=== PATIENT | female | born 1950 | race Caucasian/White ===

== ENCOUNTER 2023-08-05 12:00 | Day surgery (SDC) | payer MEDICARE ==
[2023-07-31 10:30] VITALS: BMI 31.1
[~2023-08-05 12:00] MED LIST: ACETAMINOPHEN TAB 500 MG TAB PO PRN; DEXAMETHASONE SOD PHOSPHATE 4 MG/ML 1 ML VIAL IV ONE; HEPARIN SODIUM,PORCINE 5,000 UNIT/ML 1 ML VIAL SQ PRN; HYDROmorphone 0.5 MG/0.5 ML SYRINGE IVP PRN; LACTATED RINGERS 1,000 ML IV SCH; MIDAZOLAM 2 MG/2 ML VIAL IV PRN; ONDANSETRON 4 MG/2 ML VIAL IVP ONE; Pre Op ABX Message 1 EACH MISC MISCELLANE ONE
[2023-08-05] MEDS ORDERED: DEXAMETHASONE SOD PHOSPHATE 4 MG/ML 1 ML VIAL IVP ONE (12:44)
[2023-08-05] MEDS ORDERED: ONDANSETRON 4 MG/2 ML VIAL IVP ONE (12:44)
--- NOTE | 2023-08-05 13:50 | P.GSHP ---
History of Present Illness H&P Date: 08/05/23 Chief Complaint: Ovarian cancer 72-year-old female diagnosed with ovarian cancer about a year ago. She has already gone through 1 round of chemotherapy and will be starting another round soon. Patient has poor IV access and is here today for Port-A-Cath placement for that reason. Past Medical History Past Medical History: Cancer, Hypertension Additional Past Medical History / Comment(s): OVARIAN CANCER History of Any Multi-Drug Resistant Organisms: None Reported Past Surgical History: Appendectomy, Bowel Resection, Cholecystectomy, Hysterectomy Additional Past Surgical History / Comment(s): TUMOR DEBULKING. RIGHT CONGENITAL OBSTRUCTION REMOVED AND REPAIRED URETER. BILATERAL CATARACTS. Past Anesthesia/Blood Transfusion Reactions: No Reported Reaction Additional Past Anesthesia/Blood Transfusion Reaction / Comment(s): no problems with platelet transfusion-received transfusion of 07-16-23. Past Alcohol Use History: Rare - Past Family History Mother Family Medical History: Diabetes Mellitus Father Family Medical History: Cancer, Coronary Artery Disease (CAD), Diabetes Mellitus Additional Family Medical History / Comment(s): colon Medications and Allergies Home Medications Medication Instructions Recorded Confirmed Type B-Complex with Vitamin C 1 tab PO DAILY 07/26/23 08/05/23 History Cholecalciferol (Vitamin D3) 125 mg PO Q3D 07/26/23 08/05/23 History [Vitamin D3 (125 MCG = 5,000 IU)] Levothyroxine Sodium [Synthroid] 50 mcg PO QAM 07/26/23 08/05/23 History Lisinopril-Hctz 20-12.5 mg 1 tab PO QAM 07/26/23 08/05/23 History [Zestoretic 20-12.5] Multivitamins, Thera [Multivitamin 1 tab PO DAILY 07/26/23 08/05/23 History (formulary)] OLANZapine [ZyPREXA] 2.5 mg PO DIRECTED PRN 07/26/23 08/05/23 History Venlafaxine HCl [Effexor XR] 150 mg PO QAM 07/26/23 08/05/23 History amLODIPine 10 mg PO HS 07/26/23 08/05/23 History lisinopriL [Zestril] 10 mg PO QAM 07/26/23 08/05/23 History L.acidoph,Paracasei, B.lactis 1 dose PO DAILY 07/31/23 08/05/23 History [Probiotic] Allergies Allergy/AdvReac Type Severity Reaction Status Date / Time Penicillins Allergy Rash/Hives Verified 08/05/23 12:19 Sulfa (Sulfonamide Allergy Rash/Hives Verified 08/05/23 12:19 Antibiotics) Surgical - Exam Vital Signs Temp Pulse Resp BP Pulse Ox 98.5 F 87 16 131/79 97 08/05/23 12:30 08/05/23 12:30 08/05/23 12:30 08/05/23 12:30 08/05/23 12:30 Physical exam: General: Well-developed, well-nourished HEENT: Normocephalic, sclerae nonicteric Abdomen: Nontender, nondistended Extremities: No edema Neuro: Alert and oriented Assessment and Plan (1) Ovarian cancer Narrative/Plan: 72-year-old female with ovarian cancer. Will proceed with Port-A-Cath placement at this time. Risks of bleeding, infection, DVT, pneumothorax, catheter malfunction, anesthesia related complications were discussed. The patient understands and wishes to proceed. Current Visit: Yes Status: Acute Code(s): C56.9 - MALIGNANT NEOPLASM OF UNSPECIFIED OVARY SNOMED Code(s): 333923697
[2023-08-05] MEDS ORDERED: PHENYLEPHRINE 10 MG/ML VIAL ONE (13:54)
[2023-08-05] MEDS ORDERED: PROPOFOL 10 MG/ML 20 ML VIAL IV ONE (13:54)
[2023-08-05] MEDS ORDERED: MIDAZOLAM 2 MG/2 ML VIAL ONE (13:54)
[2023-08-05] MEDS ORDERED: LIDOCAINE 1% INJ 10MG/ML (20 ML MDV) ONE (13:54)
[2023-08-05] MEDS ORDERED: fentaNYL (PF) 50 MCG/ML 2 ML AMP ONE (13:54)
[2023-08-05] MEDS ORDERED: KETOROLAC 15 MG/ML 1 ML VIAL ONE (13:54)
[2023-08-05] MEDS ORDERED: ceFAZolin 1 GM/50 ML BAG (PMX) ONE (13:54)
[2023-08-05] MEDS ORDERED: HEPARIN SODIUM,PORCINE 100 UNIT/ML 5 ML VIAL IV ONE ×2 (14:12→14:35)
[2023-08-05] MEDS ORDERED: LIDOCAINE (PF) 10 MG/ML 2 ML VIAL SQ ONE ×2 (14:13→14:41)
[2023-08-05] MEDS ORDERED: SODIUM CHLORIDE 0.9% 50 ML with ceFAZolin 2,000 MG IV ONE ×2 (14:15)
[2023-08-05] MEDS ORDERED: ACETAMINOPHEN TAB 325 MG TAB PO PRN (15:01)
[2023-08-05] MEDS ORDERED: NALOXONE 0.4 MG/ML 1 ML VIAL IV PRN (15:01)
--- NOTE | 2023-08-05 15:06 | FL ---
EXAMINATION TYPE: FL guided central line placemt Intraoperative/procedural fluoroscopic services were provided. CLINICAL INDICATION:Female, 72 years old with history of INSERTION PORT A CATH; , [facility] Total fluoroscopy time is 41.4 seconds . DAP: 2.1141 Gycm2 Please see the operative/procedural note for further details.
[2023-08-05 15:09] VITALS: TEMP 97
--- NOTE | 2023-08-05 15:10 | P.OP ---
Date of Procedure: 08/05/23 Procedure(s) Performed: PREOPERATIVE DIAGNOSIS: Ovarian cancer POSTOPERATIVE DIAGNOSIS: Same PROCEDURE: Port-A-Cath placement with fluoroscopic and ultrasound guidance SURGEON: Christen EBL: Minimal ANESTHESIA: General COMPLICATIONS: None OPERATIVE PROCEDURE: Patient was brought and placed on the operative table in the supine position. The patient was placed under general anesthesia at that time. The chest and neck were prepped and draped in usual sterile fashion. The ultrasound probe was used to identify the location of the right internal jugular vein. The skin was localized with lidocaine. The Seldinger needle was advanced into the IJ under ultrasound guidance. The wire was advanced through the needle under fluoroscopic guidance approximately 4 cm distal to our wire insertion site. There is an acute angulation of the vein in that area and we were unable to advance the guidewire any further. The right side was then aborted. The left side was addressed. I was able to easily access the left internal jugular vein and the wire was able to be advanced into the superior vena cava without d ifficulty. A port pocket was created in the left infraclavicular location. The catheter was tunneled from the wire entrance site to the port pocket. The port was then connected to the catheter. The dilator introducer was threaded over the guidewire. The guidewire and dilator were then removed. The catheter was advanced through the introducer and introducer was then removed. The tip was seen to be in the right atrial junction via fluoroscopy. A picture of the radiograph showing the tip of the catheter was taken. Port was flushed with both saline and a Hep-Lock solution. There was good flow both in and out of the port. The port was sutured in underlying tissues using 3-0 silk sutures. The subcutaneous tissues were reapproximated using 3-0 Vicryl sutures and the skin at both locations using 4-0 Monocryl sutures. Skin glue and sterile dressings then applied. DISPOSITION: Stable to recovery room
--- NOTE | 2023-08-05 15:36 | XR ---
EXAMINATION TYPE: XR chest 1V confirm line [facility] DATE OF EXAM: 08/05/2023 COMPARISON: NONE HISTORY: Line placement TECHNIQUE: Single frontal view of the chest is obtained. FINDINGS: There is no focal air space opacity, pleural effusion, or pneumothorax seen. The cardiac silhouette size is within normal limits. The osseous structures are intact. Degenerative changes of the spine with scoliotic curvature. Left-sided Mediport catheter seen with the tip of the catheter overlying SVC. IMPRESSION: No acute process.
[2023-08-05 15:37] VITALS: RESP 16
[2023-08-05 16:04] VITALS: BP 127/79; PULSE 89
== END 2023-08-05 16:18 | disposition home or self-care (01) ==
LOC: OR 12:00
PROVIDERS: ATTEND Surgery
DX: C56.2 Malignant neoplasm of left ovary (principal); I10 Essential (primary) hypertension; F10.90 Alcohol use, unspecified, uncomplicated; Z90.49 Acquired absence of other specified parts of digestive tract; Z90.710 Acquired absence of both cervix and uterus; Z83.3 Family history of diabetes mellitus; Z82.49 Family history of ischemic heart disease and other diseases of the circulatory system; Z79.890 Hormone replacement therapy; Z79.899 Other long term (current) drug therapy; Z98.890 Other specified postprocedural states
CPT/HCPCS: 77001; 36561; J2001; J1644; J1642; J1100; J2405; J0690

== ENCOUNTER → 2023-12-03 | Outpatient (CLI) | payer MEDICARE ==
--- NOTE | 2023-12-03 12:55 | US ---
EXAMINATION TYPE: US venous doppler duplex UE LT DATE OF EXAM: 12/03/2023 COMPARISON: NONE CLINICAL INDICATION: Female, 73 years old with history of R22.32 SWELLING, MASS AND LUMP, LEFT UPPER LIMB; Swelling to left side of face/mandible. Finished last ovarian cancer treatment this week; SVC c lot by port. SIDE PERFORMED: Left Right Arm: NA Left Arm: Negative for DVT Cystic area within the left parotid gland = 1.7 x 0.9 x 1.0 cm IMPRESSION: No evidence for left arm deep vein tendinosis. Cystic area within the left parotid gland measuring up to 1.[address] imaging for further amairani luation of the head and neck. Ultimately close surveillance and/or tissue symptoms recommended.
== END | disposition home or self-care (01) ==
LOC: RADUSWWP 11:58
PROVIDERS: ATTEND Internal Medicine Hematology & Oncology
DX: R22.32 Localized swelling, mass and lump, left upper limb (principal)

== ENCOUNTER 2024-11-08 08:16 | Emergency (ER) | payer MEDICARE ==
[2024-11-08 08:21] VITALS: PULSE 93; RESP 17; TEMP 98
[2024-11-08] MEDS: FAMOTIDINE 20 MG/2 ML VIAL IV STA (08:43)
[2024-11-08] MEDS: ONDANSETRON 4 MG/2 ML VIAL IVP STA (08:43)
[2024-11-08] MEDS: SODIUM CHLORIDE 0.9% 1,000 ML IV ONE (08:43)
--- NOTE | 2024-11-08 08:47 | ED ---
Nausea/Vomiting/Diarrhea HPI - General Chief complaint: Nausea/Vomiting/Diarrhea Stated complaint: Nausea, vomiting Time Seen by Provider: 11/08/24 08:19 Source: patient, RN notes reviewed Mode of arrival: ambulatory Limitations: no limitations - History of Present Illness Initial comments: This is a 74-year-old female who presents to the emergency department for nausea and vomiting. States that it started around midnight. Believes that she may have eaten something bad. Denies any changes in bowel/bladder habits. Denies any fevers/chills or sick contacts. She does report mild abdominal bloating but no discomfort that has been an ongoing issue. States that she has a history of ovarian cancer and the treatment has not been effective. She has a follow-up scan in 5 days. Currently follows with Dr. Gomez as well as a surgical oncologist in [place]. She was given Zofran by EMS on the route with significant improvement in nausea. MD complaint: nausea, vomiting - Related Data Home Medications Medication Instructions Recorded Confirmed B-Complex with Vitamin C 1 tab PO DAILY 07/26/23 08/05/23 Cholecalciferol (Vitamin D3) 125 mg PO Q3D 07/26/23 08/05/23 [Vitamin D3 (125 MCG = 5,000 IU)] Levothyroxine Sodium [Synthroid] 50 mcg PO QAM 07/26/23 08/05/23 Lisinopril-Hctz 20-12.5 mg 1 tab PO QAM 07/26/23 08/05/23 [Zestoretic 20-12.5] Multivitamins, Thera [Multivitamin 1 tab PO DAILY 07/26/23 08/05/23 (formulary)] OLANZapine [ZyPREXA] 2.5 mg PO DIRECTED PRN 07/26/23 08/05/23 Venlafaxine HCl [Effexor XR] 150 mg PO QAM 07/26/23 08/05/23 amLODIPine 10 mg PO HS 07/26/23 08/05/23 lisinopriL [Zestril] 10 mg PO QAM 07/26/23 08/05/23 L.acidoph,Paracasei, B.lactis 1 dose PO DAILY 07/31/23 08/05/23 [Probiotic] Allergies Allergy/AdvReac Type Severity Reaction Status Date / Time Penicillins Allergy Rash/Hives Verified 11/08/24 08:21 Sulfa (Sulfonamide Allergy Rash/Hives Verified 11/08/24 08:21 Antibiotics) Review of Systems ROS Statement: Those systems with pertinent positive or pertinent negative responses have been documented in the HPI. ROS Other: All systems not noted in ROS Statement are negative. Past Medical History Past Medical History: Cancer, Hypertension Additional Past Medical History / Comment(s): OVARIAN CANCER History of Any Multi-Drug Resistant Organisms: None Reported Past Surgical History: Appendectomy, Bowel Resection, Cholecystectomy, Hysterectomy Additional Past Surgical History / Comment(s): TUMOR DEBULKING. RIGHT CONGENITAL OBSTRUCTION REMOVED AND REPAIRED URETER. BILATERAL CATARACTS. Past Anesthesia/Blood Transfusion Reactions: No Reported Reaction Past Psychological History: Anxiety, Depression Past Alcohol Use History: Rare General Exam Limitations: no limitations General appearance: alert, in no apparent distress Head exam: Present: atraumatic, normocephalic, normal inspection Respiratory exam: Present: normal lung sounds bilaterally. Absent: respiratory distress, wheezes, rales, rhonchi, stridor Cardiovascular Exam: Present: regular rate, normal rhythm GI/Abdominal exam: Present: soft, normal bowel sounds. Absent: distended, tenderness, guarding, rebound, rigid Neurological exam: Present: alert, oriented X3, CN II-XII intact Psychiatric exam: Present: normal affect, normal mood Skin exam: Present: warm, dry, intact, normal color. Absent: rash Course Vital Signs 11/08/24 11/08/24 08:18 11:21 Temperature 98.0 F Pulse Rate 93 Respiratory 17 Rate Blood Pressure 125/78 126/75 O2 Sat by Pulse 97 98 Oximetry Medical Decision Making - Medical Decision Making This is a 74-year-old female who presents to the emergency department for nausea and vomiting. Was pt. sent in by a medical professional or institution? @ -No Did you speak to anyone other than the patient for history? @ -No Did you review nursing and triage notes? @ -Yes, and I agree, it is accurate with regards to the patient's symptoms. Were old charts reviewed? @ -No Differential Diagnosis? @ -Differential Nausea and Vomiting: Gastroenteritis, cholecystitis, appendicitis, pancreatitis, migraine, benign positional vertigo, food borne illness, pyelonephritis, irritable bowel syndrome, influenza, Covid, GERD, incarcerated hernia, intestinal obstruction, this is not meant to be an all-inclusive list. EKG interpreted by me (3pts min.)? @ -Not obtained X-rays interpreted by me (1pt min.)? @ -Not obtained CT interpreted by me (1pt min.)? @ -Not obtained U/S interpreted by me (1pt. min.)? @ -Not obtained What testing was considered but not performed? (CT, X-rays, U/S, labs)? Why? @ -None What meds were considered but not given? Why? @ -None Did you discuss the management of the patient with other professionals? @ -No Did you reconcile home meds? @ -No Was smoking cessation discussed for >3mins.? @ -No Was critical care preformed (if so, how long)? @ -No Were there social determinants of health that impacted care today? How? (Homelessness, low income, unemployed, alcoholism, drug addiction, transportation, low edu. Level, literacy, decrease access to med. care, alf, rehab)? @ -No Was there de-escalation of care discussed even if they declined? (Discuss DNR or withdrawal of care, Hospice)? @ -No What co-morbidities impacted this encounter? (DM, HTN, Smoking, COPD, CAD, Cancer, CVA, Hep., AIDS, mental health diagnosis, sleep apnea, morbid obesity)? @ -Ovarian cancer Was patient admitted / discharged? @ -Discharged. Lab work unremarkable. Urinalysis negative for signs of infection. She was treated with IV fluids, Zofran, and famotidine with significant improvement in symptoms. She was tolerating oral intake afterwards without any difficulty. Symptoms likely viral in nature or related to something she consumed. She did not need a refill on the Zofran, as she advised that she has some at home. Advised taking this as needed for any additional nausea and vomiting and slowly advancing her diet as tolerated and remaining well-hydrated. Patient discharged home in stable condition. Case discussed with ED attending Dr. Squires. Return precautions reviewed in depth, the patient is instructed to return to the emergency department with any new, worsening, or concerning symptoms. Patient verbalized understanding. Undiagnosed new problem with uncertain prognosis? @ -None Drug Therapy requiring intensive monitoring for toxicity (Heparin, Nitro, Insulin, Cardizem)? @ -None Were any procedures done? @ -None Diagnosis/symptom? @ -Nausea and vomiting Acute, or Chronic, or Acute on Chronic? @ -Acute Uncomplicated (without systemic symptoms) or Complicated (systemic symptoms)? @ -Uncomplicated Side effects of treatment? @ -None Exacerbation, Progression, or Severe Exacerbation] @ -Not applicable Poses a threat to life or bodily function? @ -No - Lab Data Result diagrams: 11/08/24 08:30 11/08/24 08:30 Lab Results 11/08/24 11/08/24 11/08/24 Range/Units 08:30 08:30 08:30 WBC 9.81 (4.50-10.00) 10*3/uL RBC 4.32 (4.10-5.20) 10*6/uL Hgb 15.7 H (12.0-15.0) g/dL Hct 43.8 (37.2-46.3) % MCV 101.4 H (80.0-97.0) fL MCH 36.3 H (27.0-32.0) pg MCHC 35.8 (32.0-37.0) g/dL Plt Count 251 (140-440) 10*3/uL MPV 9.3 L (9.5-12.2) fL Immature Gran % (Auto) 0.3 % Neutrophils % 86.5 % Lymphocytes % 7.4 % Monocytes % 5.5 % Eosinophils % 0.0 % Basophils % 0.3 % Immature Gran # 0.03 (0.00-0.04) 10*3/uL Neutrophils # 8.48 H (1.80-7.70) 10*3/uL Lymphocytes # 0.73 L (0.90-5.00) 10*3/uL Monocytes # 0.54 (0.20-1.00) 10*3/uL Eosinophils # 0.00 L (0.04-0.35) 10*3/uL Basophils # 0.03 (0.00-0.10) 10*3/uL Manual Slide Review Performed Immature Plt Fraction 1.3 (1.1-6.1) % Sodium 140 (137-145) mmol/L Potassium 3.7 (3.5-5.1) mmol/L Chloride 102 (98-107) mmol/L Carbon Dioxide 29 (22-30) mmol/L Anion Gap 9 mmol/L BUN 16 (7-17) mg/dL Creatinine 0.69 (0.52-1.04) mg/dL Est GFR (CKD-EPI)AfAm >90 (>60 ml/min/1.73 sqM) Est GFR (CKD-EPI)NonAf 87 (>60 ml/min/1.73 sqM) Glucose 159 H (74-99) mg/dL Plasma Lactic Acid Christiano 2.0 (0.7-2.0) mmol/L Calcium 9.7 (8.4-10.2) mg/dL Total Bilirubin 0.9 (0.2-1.3) mg/dL AST 43 H (14-36) U/L ALT 29 (4-34) U/L Alkaline Phosphatase 111 (38-126) U/L Total Protein 7.0 (6.3-8.2) g/dL Albumin 3.9 (3.5-5.0) g/dL Lipase 91 (23-300) U/L Urine Color Urine Appearance (Clear) Urine pH (5.0-8.0) Ur Specific [place] (1.001-1.035) Urine Protein (Negative) Urine Glucose (UA) (Negative) Urine Ketones (Negative) Urine Blood (Negative) Urine Nitrite (Negative) Urine Bilirubin (Negative) Urine Urobilinogen (<2.0) mg/dL Ur Leukocyte Esterase (Negative) Urine RBC (0-5) /hpf Urine WBC (0-5) /hpf Ur Squamous Epith Cells (0-4) /hpf Urine Mucus (None) /hpf 05/11/25 Range/Units 08:32 WBC (4.50-10.00) 10*3/uL RBC (4.10-5.20) 10*6/uL Hgb (12.0-15.0) g/dL Hct (37.2-46.3) % MCV (80.0-97.0) fL MCH (27.0-32.0) pg MCHC (32.0-37.0) g/dL Plt Count (140-440) 10*3/uL MPV (9.5-12.2) fL Immature Gran % (Auto) % Neutrophils % % Lymphocytes % % Monocytes % % Eosinophils % % Basophils % % Immature Gran # (0.00-0.04) 10*3/uL Neutrophils # (1.80-7.70) 10*3/uL Lymphocytes # (0.90-5.00) 10*3/uL Monocytes # (0.20-1.00) 10*3/uL Eosinophils # (0.04-0.35) 10*3/uL Basophils # (0.00-0.10) 10*3/uL Manual Slide Review Immature Plt Fraction (1.1-6.1) % Sodium (137-145) mmol/L Potassium (3.5-5.1) mmol/L Chloride (98-107) mmol/L Carbon Dioxide (22-30) mmol/L Anion Gap mmol/L BUN (7-17) mg/dL Creatinine (0.52-1.04) mg/dL Est GFR (CKD-EPI)AfAm (>60 ml/min/1.73 sqM) Est GFR (CKD-EPI)NonAf (>60 ml/min/1.73 sqM) Glucose (74-99) mg/dL Plasma Lactic Acid [place] (0.7-2.0) mmol/L Calcium (8.4-10.2) mg/dL Total Bilirubin (0.2-1.3) mg/dL AST (14-36) U/L ALT (4-34) U/L Alkaline Phosphatase (38-126) U/L Total Protein (6.3-8.2) g/dL Albumin (3.5-5.0) g/dL Lipase (23-300) U/L Urine Color Yellow Urine Appearance Cloudy H (Clear) Urine pH 8.0 (5.0-8.0) Ur Specific [place] 1.021 (1.001-1.035) Urine Protein Trace H (Negative) Urine Glucose (UA) Negative (Negative) Urine Ketones Negative (Negative) Urine Blood Negative (Negative) Urine Nitrite Negative (Negative) Urine Bilirubin Negative (Negative) Urine Urobilinogen <2.0 (<2.0) mg/dL Ur Leukocyte Esterase Negative (Negative) Urine RBC 3 (0-5) /hpf Urine WBC 2 (0-5) /hpf Ur Squamous Epith Cells <1 (0-4) /hpf Urine Mucus Rare H (None) /hpf Disposition Clinical Impression: Nausea and vomiting Disposition: HOME SELF-CARE Instructions (If sedation given, give patient instructions): Acute Nausea and Vomiting (ED) Additional Instructions: Return to the emergency department with any new, worsening, or concerning symptoms. Continue to take the Zofran up to every 8 hours as needed for nausea and vomiting. Slowly advance your diet as tolerated and remain well-hydrated. Follow up with your primary care provider in 1-2 days. Is patient prescribed a controlled substance at d/c from ED?: No Referrals: Nonstaff,Physician [Primary Care Provider] - 1-2 days Time of Disposition: 10:42
[2024-11-08 08:48] LABS: Basophils # (A) 0.03 10*3/uL (0.00-0.10); Basophils % (A) 0.3 %; HCT 43.8 % (37.2-46.3); HGB 15.7 g/dL (12.0-15.0); Immature Platelet Fraction 1.3 % (1.1-6.1); Lymphocytes # (A) 0.73 10*3/uL (0.90-5.00); Lymphocytes % (A) 7.4 %; MCH 36.3 pg (27.0-32.0); MCHC 35.8 g/dL (32.0-37.0); MCV 101.4 fL (80.0-97.0); Mean Platelet Volume 9.3 fL (9.5-12.2); Monocytes # (A) 0.54 10*3/uL (0.20-1.00); Monocytes % (A) 5.5 %; Neutrophils # (A) 8.48 10*3/uL (1.80-7.70); Neutrophils % (A) 86.5 %; RBC 4.32 10*6/uL (4.10-5.20); RDW 11.9 % (11.5-14.5); WBC 9.81 10*3/uL (4.50-10.00)
[2024-11-08 09:25] LABS: ALT 29 U/L (4-34); AST 43 U/L (14-36); African American GFR (CKD) >90 (>60 ml/min/1.73 sqM); Albumin 3.9 g/dL (3.5-5.0); Alkaline Phosphatase 111 U/L (38-126); Anion Gap 9 mmol/L; Blood Urea Nitrogen 16 mg/dL (7-17); Calcium 9.7 mg/dL (8.4-10.2); Carbon Dioxide 29 mmol/L (22-30); Chloride 102 mmol/L (98-107); Glucose 159 mg/dL (74-99); Lipase 91 U/L (23-300); Non-African American GFR(CKD) 87 (>60 ml/min/1.73 sqM); Potassium 3.7 mmol/L (3.5-5.1); Sodium 140 mmol/L (137-145); Total Bilirubin 0.9 mg/dL (0.2-1.3)
[2024-11-08 10:02] LABS: Appearance,Urine Cloudy (Clear); Bilirubin,Urine Negative (Negative); Blood,Urine Negative (Negative); Color,Urine Yellow; Glucose,Urine (UA) Negative (Negative); Ketones,Urine Negative (Negative); Leukocyte Esterase,Urine Negative (Negative); Mucus,Urine Rare /hpf; Nitrite,Urine Negative (Negative); Protein,Urine Trace (Negative); RBC,Urine 3 /hpf (0-5); Specific Gravity,Urine 1.021 (1.001-1.035); Squamous Epithelial Cell,Urine <1 /hpf (0-4); Urobilinogen,Urine <2.0 mg/dL (<2.0); WBC,Urine 2 /hpf (0-5)
[2024-11-08 11:20] LABS: Platelet Count 251 10*3/uL (140-440)
[2024-11-08 11:21] VITALS: BP 126/75
== END 2024-11-08 11:21 | disposition home or self-care (01) ==
LOC: EC 08:16
DX: R11.2 Nausea with vomiting, unspecified (principal); Z85.43 Personal history of malignant neoplasm of ovary; Z88.2 Allergy status to sulfonamides; Z88.0 Allergy status to penicillin
CPT/HCPCS: 36415; 80053; 83605; 83690; 85025; 81001; 99284; 96374; 96375; 96361 ×3; J2405; J1308

== ENCOUNTER 2024-12-03 07:59 | Day surgery (SDC) | payer MEDICARE ==
[2024-12-03 09:10] LABS: Mean Platelet Volume 9.4 fL (9.5-12.2); Platelet Count 237 10*3/uL (140-440)
[2024-12-03 09:23] LABS: INR 1.2 (<1.2); Prothrombin Time 12.5 sec (10.0-12.5)
[2024-12-03 09:43] VITALS: RESP 16; TEMP 98.1
[2024-12-03 10:45] VITALS: BP 137/80; PULSE 97
--- NOTE | 2024-12-03 12:00 | US ---
EXAMINATION TYPE: US paracentesis abd w/image DATE OF EXAM: 12/03/2024 9:53 AM COMPARISON: prior paracentesis. CLINICAL INDICATION:Female, 74 years old with history of R18.8 ascities; , ascites ATTENDING: Dr. Garica Polo PROCEDURE: Informed consent was obtained. The risks of the procedure were extensively explained incl uding risk of damage to surrounding bowel with perforation and need for additional procedures. Proced ure was performed in the ultrasound procedure suite. Ultrasound imaging of the abdomen demonstrate as citic fluid. An appropriate access site was localized to the right lower abdomen. Timeout was taken p er protocol. The skin was prepped and draped in the usual sterile fashion and then locally anesthetiz ed with 1% lidocaine. The peritoneal cavity was then accessed via a 5-Kiswahili one-step needle/cathete r. Approximately 6200 mL of clear straw-colored fluid was obtained. Postprocedural imaging of the ab domen demonstrate a minimal amount of abdominal fluid. Patient tolerated procedure well without immediate complication. Hemostasis at the procedural site w as obtained with a sterile bandage placed. The patient was monitored in the holding area following th e procedure and was subsequently discharged in stable condition. IMPRESSION: Ultrasound guided paracentesis, with approximately 6200 mL of clear straw-colored fluid drained. No i mmediate complications were evident. [facility], , 12/03/2024 11:57 AM
== END 2024-12-03 10:45 | disposition home or self-care (01) ==
LOC: RADPROMAIN 07:59
PROVIDERS: ATTEND Internal Medicine Hematology & Oncology
DX: R18.8 Other ascites (principal)
CPT/HCPCS: 85049; 85610; 49083; J1642

== ENCOUNTER 2025-01-18 12:55 | Day surgery (SDC) | payer MEDICARE ==
--- NOTE | 2025-01-18 20:08 | US ---
EXAMINATION TYPE: US discontinued paracentesis DATE OF EXAM: 01/18/2025 1:46 PM COMPARISON: prior paracentesis. CLINICAL INDICATION:Female, 74 years old with history of R18.8; , ascites ATTENDING: Dr. Garcia Polo Technique grayscale imaging of the abdomen. FINDINGS: Small amount of fluid in the abdomen. Patient deferred paracentesis at this time. IMPRESSION: Small amount of abdominal ascites. [facility], , 01/18/2025 8:06 PM
== END 2025-01-18 13:50 | disposition home or self-care (01) ==
LOC: RADPROMAIN 12:55
PROVIDERS: ATTEND Internal Medicine Hematology & Oncology
DX: Z53.8 Procedure and treatment not carried out for other reasons (principal); R18.8 Other ascites
CPT/HCPCS: 76705

== ENCOUNTER → 2025-01-20 | Outpatient (CLI) | payer MEDICARE ==
--- NOTE | 2025-01-20 11:17 | US ---
EXAMINATION TYPE: US gallbladder DATE OF EXAM: 01/20/2025 COMPARISON: NONE CLINICAL INDICATION: Female, 74 years old with history of C56.2 MALIGNANT NEOPLASM OF LEFT OVARY; Xander sea, gallbladder previously removed. TECHNIQUE: Grayscale and color Doppler imaging of the right upper quadrant was performed. FINDINGS: EXAM MEASUREMENTS: Liver Length: 15.9 cm Gallbladder: Surgically absent CBD: 1.1 cm Right Kidney: 7.8 x 4.0 x 3.9 cm Pancreas: Obscured by bowel gas Liver: Overall homogeneous appearance. No focal lesion. Gallbladder: Surgically absent Evidence for sonographic Turk's sign: No CBD: no stones seen in portions visualized. Dilated. Right Kidney: Limited due to bowel gas. No obvious hydronephrosis. [id number] perihepatic ascites fluid. IMPRESSION: 1. Mild to moderate perihepatic ascites. 2. The bile duct is dilated at 1.1 cm. This may be chronic, relating to postcholecystectomy status an d patient's age. Correlate with alkaline phosphatase and bilirubin levels. [facility], , 01/20/2025 11:15 AM
== END | disposition home or self-care (01) ==
LOC: RADUSWWP 07:54
PROVIDERS: ATTEND Internal Medicine Hematology & Oncology
DX: C56.2 Malignant neoplasm of left ovary (principal); R18.0 Malignant ascites; K82.8 Other specified diseases of gallbladder; Z90.49 Acquired absence of other specified parts of digestive tract
CPT/HCPCS: 76705